=== PATIENT | female | born 2000 | race Caucasian/White ===

== ENCOUNTER → 2024-12-03 | Outpatient (CLI) | payer OTHER, SELFPAY ==
--- NOTE | 2024-12-03 | XR_ITS ---
EXAMINATION: Cervical spine, 5 views Technique: Cervical spine AP, AP odontoid, lateral, bilateral obliques, 5 views Exam date and time: December 03, 2024, 0901 hours INDICATIONS: Neck pain 1 year. FINDINGS: Straightening normal cervical lordosis. No cervical fracture. Intact odontoid. Minimal disc narrowing C4-C5 No neuroforaminal stenosis IMPRESSION: Early disc narrowing C4-C5
--- NOTE | 2024-12-03 | XR_ITS ---
EXAMINATION: Thoracic spine 3 views TECHNIQUE: AP lateral coned lateral upper dorsal spine 3 views Date and time: December 03, 2024, 0909 hours INDICATIONS: Upper back pain 1 year FINDINGS: Upper thoracic levoscoliosis 8 degrees Mild osteopenia. No thoracic fracture. No significant thoracic disc narrowing IMPRESSION: Upper thoracic levoscoliosis 8 degrees
--- NOTE | 2024-12-03 | XR_ITS ---
Examination: Lumbar spine, 5 views Technique: Lumbar spine AP, lateral, coned lateral lower lumbar spine, bilateral obliques 5 views Exam date and time: December 03, 2024 close 0901 hours Indications: Lower back pain 1 year. FINDINGS: Lumbar dextroscoliosis 10 degrees Moderate diffuse facet arthropathy No lumbar fracture Mild to moderate degenerative disc disease L5-S1 No spondylolisthesis IMPRESSION: Mild to moderate degenerative disc disease L5-S1
== END | disposition home or self-care (01) ==
PROVIDERS: PCP Family Medicine; Referring Provider Registered Nurse; Visit Provider Registered Nurse
DX: M48.02 Spinal stenosis, cervical region (principal); M51.370 Other intervertebral disc degeneration, lumbosacral region with discogenic back pain only; M41.84 Other forms of scoliosis, thoracic region
CPT/HCPCS: 72050; 72072; 72110